=== PATIENT | male | born 2000 | race Caucasian/White ===

== ENCOUNTER 2023-06-19 16:17 | Emergency (ER) | payer OTHER ==
[~2023-06-19] VITALS: Ht 175.3 cm; Wt 86.2 kg
[2023-06-19 16:27] VITALS: BP 126/86; PULSE 99; RESP 19; TEMP 98.6; O2SAT 98
[2023-06-19] MEDS ORDERED: FLONAS NS (17:05)
[2023-06-19] MEDS ORDERED: SODI1PAC12 NS (17:05)
[2023-06-19] MEDS ORDERED: AMOX-999 PO (17:05)
[2023-06-19] MEDS ORDERED: CETI10SG1 PO (17:05)
[2023-06-19] MEDS ORDERED: AMOX1TAB8 PO (17:12)
[2023-06-19 17:25] VITALS: BP 134/60; PULSE 88; RESP 19; TEMP 98.9; O2SAT 97
[2023-06-19] MEDS ORDERED: IBUP-2213 PO (17:28)
[2023-06-19 17:38] LABS: FLU A ANTIGEN negative (NEGATIVE); FLU B ANTIGEN NEGATIVE (NEGATIVE)
== END 2023-06-19 17:26 | disposition home or self-care (01) ==
LOC: MED 16:17
DX: J32.9 Chronic sinusitis, unspecified (principal); Z20.822 Contact with and (suspected) exposure to COVID-19; Z79.899 Other long term (current) drug therapy
CPT/HCPCS: 87081; 99283

== ENCOUNTER 2024-01-29 16:48 | Emergency (ER) | payer OTHER ==
[~2024-01-29] VITALS: Ht 172.7 cm; Wt 94.5 kg
[~2024-01-29 16:48] MED LIST: AMOX1TAB8 PO; CETI10SG1 PO; FLONAS NS; IBUP-2213 PO; SODI1PAC12 NS
[2024-01-29 17:19] VITALS: BP 117/74; PULSE 98; RESP 16; TEMP 98.3; O2SAT 98
[2024-01-29] MEDS ORDERED: DICL20GE TP (17:50)
[2024-01-29] MEDS ORDERED: CYCL-711 PO (17:50)
[2024-01-29] MEDS ORDERED: NAPR-1704 PO (17:50)
[2024-01-29] MEDS: LIDOCAINE 5% 1 EA PATCH TP ONE (18:04)
[2024-01-29] MEDS: KETOROLAC 30 MG/ML VIAL IM ONE (18:04)
[2024-01-29 18:30] VITALS: BP 121/82; PULSE 66; RESP 16; TEMP 98.3; O2SAT 98
== END 2024-01-29 18:30 | disposition home or self-care (01) ==
LOC: MED 16:48
DX: S16.1XXA Strain of muscle, fascia and tendon at neck level, initial encounter (principal); Z79.899 Other long term (current) drug therapy; X58.XXXA Exposure to other specified factors, initial encounter; Y92.89 Other specified places as the place of occurrence of the external cause; Y93.89 Activity, other specified; Y99.8 Other external cause status
CPT/HCPCS: 96372; 99283; J1885